=== PATIENT | male | born 1960 | race Two or more races ===

== ENCOUNTER 2024-07-03 07:22 | Emergency (ER) | payer BC ==
[~2024-07-03] VITALS: Ht 167.6 cm; Wt 77.1 kg
[2024-07-03 07:50] VITALS: BP 155/84; O2SAT 100
[2024-07-03] MEDS ORDERED: TAMSULOSIN HCL 0.4 MG CAP PO ONE ×2 (08:15→08:42)
[2024-07-03 09:17] LABS: URINE APPEARANCE Clear; URINE BILIRRUBIN Negative (NEGATIVE); URINE BLOOD Negative; URINE COLOR Yellow; URINE GLUCOSE Negative (NEGATIVE); URINE KETONE Negative (NEGATIVE); URINE LEUKOCYTE Negative; URINE NITRATE Negative; URINE PROTEIN Negative (NEGATIVE)
[2024-07-03 09:18] LABS: URINE BACTERIA 14.6 uL (0.0-1933); URINE RBC 3.2 uL (0.0-20.8); URINE WBC 1.8 uL (0.0-23.2)
[2024-07-03 09:21] LABS: BASO % 0.9 % (0.1-1.2); EOS # 0.18 (0.04-0.54); EOS % 1.6 % (0.7-7.0); HEMATOCRIT 47.4 % (40.1-51.0); HEMOGLOBIN 16.5 g/dL (13.7-17.5); LYMPH # 1.73 (1.18-3.74); LYMPH % 15.2 % (19.3-53.1); MEAN CORPUSCULAR HEMOGLOBIN 29.2 pg (25.6-32.2); MONO # 0.68 (0.24-0.82); NEUT # 8.64 (1.56-6.13); NEUT % 75.7 % (34.0-71.1); PLATELET COUNT 245 K/uL (163-369); RED BLOOD COUNT 5.65 M/uL (4.63-6.08)
[2024-07-03 09:48] LABS: URINE CAST 0.14 uL (0.0-1.40); URINE EPITHELIAL CELLS 1.2 uL (0.0-38.8)
[2024-07-03 10:01] LABS: CALCIUM 8.8 mg/dL (8.5-10.1); CREATININE SERUM 1.08 mg/dL (0.70-1.30); GFR 69.05; POTASSIUM 3.34 mEq/L (3.5-5.1)
== END 2024-07-03 11:00 | disposition home or self-care (01) ==
LOC: ER 07:50
PROVIDERS: Emergency Medicine
DX: N40.1 Benign prostatic hyperplasia with lower urinary tract symptoms (principal); R30.0 Dysuria; I10 Essential (primary) hypertension